=== PATIENT | female | born 1970 | race American Indian/Alaskan Native ===

== ENCOUNTER 2020-09-08 09:04 | Emergency (ER) | payer SELFPAY ==
[2020-09-08 09:13] VITALS: BP 165/84
[2020-09-08] MEDS ORDERED: KETOROLAC 30 MG/1 ML INJ IM ONE (10:54)
--- NOTE | 2020-09-08 11:00 | Emergency Department Report ---
ED Back Pain/Injury HPI - General Chief Complaint: Back Pain/Injury Stated Complaint: BACK/LEG PAIN Time Seen by Provider: 09/08/20 10:54 Source: patient Limitations: No Limitations - History of Present Illness Initial Comments: The patient was evaluated in the emergency department for symptoms described in the history of present illness. He/she was evaluated in the context of the global COVID-19 pandemic, which necessitated consideration that the patient might be at risk for infection with the virus that causes COVID-19. Institutional protocols and algorithms that pertain to the evaluation of patients at risk for COVID-19 are in a state of rapid change based on information released by regulatory bodies including the CDC and federal and state organizations. These policies and algorithms were followed during the patient's care in the emergency department. Please note that these policies, procedures and recommendations changed on a rapid basis. 50-year-old -[place] female presents to the emergency room for acute on chronic back pain and leg pain for the last 3 days. Patient reports that she needs a refill on her tramadol. Patient denies any recent injuries to her back or legs. Her primary care doctor is Dr. Fernández. She states that she ran out of her tramadol. She also reports she ran out of her amlodipine 5 mg. Patient has no history of kidney disease does have a history of back and leg pain as well as hypertension. Complaint: back pain Onset/Timin -: days(s) Similar Symptoms Previously: Yes Severity: moderate Quality: aching Consistency: intermittent Improves With: medication Associated Symptoms: denies other symptoms - Related Data Previous Rx's Medication Instructions Recorded Last Taken Type amLODIPine 5 mg PO DAILY #15 tab 09/08/20 Unknown Rx Allergies Allergy/AdvReac Type Severity Reaction Status Date / Time No Known Allergies Allergy Unverified 09/08/20 09:09 ED Review of Systems ROS: Stated complaint: BACK/LEG PAIN Other details as noted in HPI Comment: All other systems reviewed and negative ED Past Medical Hx - Past Medical History Previous Medical History?: Yes Hx Hypertension: Yes Additional medical history: Back, Leg pain - Surgical History Past Surgical History?: No - Social History Smoking Status: Never Smoker Substance Use Type: Alcohol, Marijuana - Medications Home Medications: Home Medications Medication Instructions Recorded Confirmed Last Taken Type amLODIPine 5 mg PO DAILY #15 tab 09/08/20 Unknown Rx ED Physical Exam - General Limitations: No Limitations General appearance: alert, in no apparent distress - Head Head exam: Present: atraumatic, normocephalic - Eye Eye exam: Present: normal appearance - ENT ENT exam: Present: mucous membranes moist - Neck Neck exam: Present: normal inspection - Respiratory Respiratory exam: Absent: accessory muscle use - Extremities Exam Extremities exam: Present: normal inspection, full ROM - Back Exam Back exam: Present: normal inspection - Neurological Exam Neurological exam: Present: alert, oriented X3, normal gait - Psychiatric Psychiatric exam: Present: normal affect, normal mood - Skin Skin exam: Present: warm, dry, intact, normal color. Absent: rash ED Course Vital Signs 09/08/20 09:11 Pulse Rate 60 Respiratory 18 Rate Blood Pressure 165/84 O2 Sat by Pulse 99 Oximetry ED Medical Decision Making - Medical Decision Making 50-year-old -[place] female presents to the emergency room for acute on chronic back pain and leg pain for the last 3 days. Patient reports that she needs a refill on her tramadol. Patient denies any recent injuries to her back or legs. Her primary care doctor is Dr. Fernández. She states that she ran out of her tramadol. She also reports she ran out of her amlodipine 5 mg. Patient has no history of kidney disease does have a history of back and leg pain as well as hypertension. Informed patient that the ER does not do refills on narcotics that she will need to follow-up with her primary care provider. I did inform patient I will filled her amlodipine for 2 weeks and she needs to follow-up with her primary care provider for refill. Patient's blood pressure stable at 165/84. I did inform patient I will give her a shot of Toradol and she can try [id number] ibuprofen or naproxen. Critical care attestation.: If time is entered above; I have spent that time in minutes in the direct care of this critically ill patient, excluding procedure time. ED Disposition Clinical Impression: Medication refill Acute back pain Qualifiers: Back pain location: back pain in other location Qualified Code(s): M54.9 - Dorsalgia, unspecified Hypertension Qualifiers: Hypertension type: unspecified Qualified Code(s): I10 - Essential (primary) hypertension Disposition: - TO HOME OR SELFCARE Is pt being admited?: No Does the pt Need Aspirin: No Condition: Stable Instructions: Hypertension (ED) Additional Instructions: It is important that you follow-up with your primary care provider for your chronic pain medication. Or also needs to follow-up with your primary care provider for your chronic disease management. I have refilled your amlodipine for 2 weeks. Prescriptions: amLODIPine 5 mg PO DAILY #15 tab Referrals: Pradeep Hunt [Other] - 3-5 Days
== END 2020-09-08 11:28 | disposition home or self-care (01) ==
LOC: ED 09:04
DX: M54.9 Dorsalgia, unspecified (principal); I10 Essential (primary) hypertension; F12.90 Cannabis use, unspecified, uncomplicated; Z79.899 Other long term (current) drug therapy; Z76.0 Encounter for issue of repeat prescription
CPT/HCPCS: 96372; 99282; J1885